=== PATIENT | female | born 1985 | race Caucasian/White ===

== ENCOUNTER 2018-11-20 06:43 | Emergency (ER) | payer OTHER ==
[~2018-11-20] VITALS: Ht 175.3 cm; Wt 83.2 kg
[2018-11-20 06:49] VITALS: BP 111/60; TEMP 98.9
[2018-11-20 07:04] LABS: COLLECTION METHOD CLEAN CATCH
[2018-11-20 07:10] LABS: MUCOUS Present /lpf; PH 5 (5-8); URINE APPEARANCE Cloudy; URINE BACTERIA Rare /hpf; URINE BILIRUBIN Negative (NEGATIVE); URINE BLOOD 3+ (NEGATIVE); URINE COLOR Yellow; URINE GLUCOSE Negative (NEGATIVE); URINE KETONE 1+ (NEGATIVE); URINE LEUKOCYTE ESTERASE 1+ (NEGATIVE); URINE NITRATE Negative (NEGATIVE); URINE PROTEIN(semi-quant) 1+ (NEGATIVE); URINE RBC 20-50 /hpf; URINE UROBILINOGEN Negative (NEGATIVE)
[2018-11-20 07:41] LABS: BASO % 0.2 % (0.0-2.0); EOS % 0.3 % (0-4.0); GRAN # 8.4 (1.4-6.5); GRAN % 85.7 % (42.2-75.2); HEMATOCRIT 37.3 % (37.0-47.0); HEMOGLOBIN 12.2 g/dl (12.5-16.0); LYMPH # 0.7 (1.2-3.4); LYMPH % 7.5 % (20.0-51.0); MEAN CELL VOLUME 93 fl (80.0-100.0); MEAN CORPUSCULAR HEMOGLOBIN 30 pg (27.0-31.0); MEAN CORPUSCULAR HGB CONC 33 g/dl (33.0-37.0); MEAN PLATELET VOLUME 10.5 fl (7.4-10.4); MONO # 0.6 (0.1-0.6); MONO % 5.9 % (1.7-9.3); PLATELET COUNT 173 K/mm3 (130-400); RED BLOOD COUNT 4.02 M/mm3 (4.10-5.30); REDCELL DISTRIBUTION WIDTH-CV 12.4 % (11.5-14.5)
[2018-11-20 07:58] LABS: ALBUMIN 3.9 gm/dL (3.5-5.0); BILIRUBIN,TOTAL 1.9 mg/dL (0.0-1.0); C-REACTIVE PROTEIN 7.6 mg/dL (0.0-0.9); CALCIUM 8.8 mg/dL (8.4-10.2); CREATININE, serum 0.79 (0.52-1.25); POTASSIUM 3.8 mmol/L (3.4-5.0); TOTAL PROTEIN 6.9 gm/dL (6.4-8.2)
[2018-11-20 11:55] VITALS: PULSE 94
== END 2018-11-20 11:55 | disposition home or self-care (01) ==
LOC: COL.ER 06:43
PROVIDERS: Emergency Medicine
DX: R10.30 Lower abdominal pain, unspecified (principal)
CPT/HCPCS: J1885; J7030; Q9967

== ENCOUNTER 2018-11-20 19:22 | Observation (INO) | payer OTHER ==
[~2018-11-20] VITALS: Ht 175.3 cm; Wt 82.9 kg
[2018-11-20 20:23] LABS: BILIRUBIN,TOTAL 2.4 mg/dL (0.0-1.0); CALCIUM 8.6 mg/dL (8.4-10.2); CREATININE, serum 0.72 (0.52-1.25); POTASSIUM 3.9 mmol/L (3.4-5.0); TOTAL PROTEIN 7.1 gm/dL (6.4-8.2)
[2018-11-20 20:28] LABS: BASO % 0.2 % (0.0-2.0); EOS # 0.1 (0.0-0.7); EOS % 0.4 % (0-4.0); GRAN # 10.2 (1.4-6.5); GRAN % 86.1 % (42.2-75.2); HEMATOCRIT 36.4 % (37.0-47.0); HEMOGLOBIN 11.8 g/dl (12.5-16.0); LYMPH # 0.9 (1.2-3.4); LYMPH % 7.8 % (20.0-51.0); MEAN CELL VOLUME 94 fl (80.0-100.0); MEAN CORPUSCULAR HEMOGLOBIN 31 pg (27.0-31.0); MEAN CORPUSCULAR HGB CONC 32 g/dl (33.0-37.0); MONO # 0.6 (0.1-0.6); MONO % 5.1 % (1.7-9.3); PLATELET COUNT 172 K/mm3 (130-400); RED BLOOD COUNT 3.87 M/mm3 (4.10-5.30); REDCELL DISTRIBUTION WIDTH-CV 12.4 % (11.5-14.5)
[2018-11-20 20:34] LABS: C-REACTIVE PROTEIN 13.8 mg/dL (0.0-0.9)
[2018-11-20 23:45] VITALS: BP 102/54; PULSE 84
[2018-11-20 23:57] VITALS: BP 105/54; PULSE 88; TEMP 99
[2018-11-21] VITALS (8 sets, daily range): BP systolic 98–108; BP diastolic 50–57; PULSE 58–86; TEMP 98.2–99.4
--- NOTE | 2018-11-21 | NUR ---
PT TO FLOOR FROM PACU AFTER LAP APPY. PT DENIES PAIN. NO c/o N/V. 3 AP SITES WITH [facility]ANDA[facility] INTACT.
--- NOTE | 2018-11-21 06:35 | NUR ---
awake and resting in bed, bedside shift report received from MARÍA Vargas
--- NOTE | 2018-11-21 06:50 | NUR ---
full assessment completed, see interventions for further info, assisted up to bathroom and voids qs, c/o some pain now that she is up and moving, medicated with hydrocodone 5mg 1 tab,
--- NOTE | 2018-11-21 08:15 | NUR ---
resting in bed, states pain was relieved with pain pill, ordering breakfast now
--- NOTE | 2018-11-21 09:36 | NUR ---
in bed working on her computer, had breakfast and tolerated well, denies needs
--- NOTE | 2018-11-21 09:47 | NUR ---
VIANCA met with the patient to discuss a discharge plan. The pt lives in [place] with her and their children. The pt does not have DME and reports independence with ADLs. The pt's PCP is [place] and [place] [facility] [place]. The pt does not have advanced directives in the EMR and was not interested in obtaining a form. The pt plans to return home upon discharge with her providing transportation. There are no additional needs at this time.
--- NOTE | 2018-11-21 11:14 | NUR ---
resting in bed will get up and get dressed
--- NOTE | 2018-11-21 13:30 | NUR ---
Dr Adame' was in to see patient, discharge instructions given to patient and her , verbalizes understanding
--- NOTE | 2018-11-21 13:40 | NUR ---
discharged ambulatory
== END 2018-11-21 13:41 | disposition home or self-care (01) ==
LOC: COL.ER 19:22 → SURG 21:32
PROVIDERS: Nurse Practitioner; ADMIT Surgery
DX: K35.891 Other acute appendicitis without perforation, with gangrene (principal)
CPT/HCPCS: G0378; J0690; J1100; J2270; J2405; J2704; J7030; J7120